=== PATIENT | male | born 1995 ===

== ENCOUNTER 2025-07-29 12:43 | Outpatient (AMB) | payer OTHER, SELFPAY ==
[2025-07-29 13:00] VITALS: BP 110/80; PULSE 81; O2SAT 99; BMI 28.9
--- NOTE | 2025-07-29 13:00 | AM.OFFWIN_ITS ---
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 Patient Tobacco Use Status: Never used Tobacco Allergies No Known Allergies Allergy (Verified 07/29/25 13:04) Do you need a note to return to daycare/school/sports/work: No HPI HPI Comments History of Present Illness Details History of Present Illness - The patient is a 30 year old male pres enting for evaluation of a painful great toe. - He reports that approximately one alejandro h ago, he felt a sharp sensation in his foot while walking, which he believed to be a metal splinter. - He attempted to self-extract the objec t but believes he was unsuccessful in removing it completely. - The area has since calloused over, cau sing pain whenever he steps on his big toe. - He is not sure what the FB was or even if it is still there or not. - He denies discharge, bleeding, numbnes s, tingling, or streaking. Physical Exam General: Cooperative, healthy appearing, comfortable, no acute distress and well developed Orientation: Patient oriented x3 Respiratory: Normal respiratory effort and able to speak in complete sentences. Clear to auscultation bilaterally Cardiovascular: Regular rate and rhythm. Normal S1 and S2. Pulses are 2+ on the LE. Skin: No rashes or lesions noted Neuro: Sensation is intact. Extremities: Hard callus noted on the bottom of the left great toe, no signs of infection. No induration noted. No redness, streaking, or warmth noted. Patient was informed and verbally consented to the use of an ambient scribe for clinic note documentation during this visit. PFSH Social History Patient Tobacco Use Status: Never used Tobacco Review of Systems Const All systems reviewed & are unremarkable except as noted in HPI and below Physical Exam Vital Signs: Last Vital Signs Pulse 81 07/29/25 13:00 BP 110/80 07/29/25 13:00 Pulse Ox 99 07/29/25 13:00 Oxygen Delivery Method Room Air 12/11/25 13:00 BMI result Body Mass Index 28.9 Assessment & Plan Assessment & Plan (1) Callus of toe: Code(s): L84 - Corns and callosities Plan Most likely Callus Of Foot plan - Advised him to get a removal kit OTC from the pharmacy to try - The current assessment favors a callus or corn rather than an infected foreign body. - A referral to podiatry will be arranged for further evaluation and potential removal of the callus. Orders: Referrals Podiatry Referral L84 - Corns and callosities Coding Level of Care Code Est Pt Level 3 (69752) Diagnoses Callus of toe L84
== END 2025-07-29 14:00 | disposition home or self-care (01) ==
PROVIDERS: Visit Provider Physician Assistant Medical
DX: L84 Corns and callosities (principal)

== ENCOUNTER → 2025-07-29 12:43 | Outpatient (BNVA) | payer OTHER, SELFPAY | PROVIDERS: Visit Provider Physician Assistant Medical | DX: L84 Corns and callosities (principal) | CPT/HCPCS: 99212 ==